=== PATIENT | female | born 1995 | race Asian ===

== ENCOUNTER 2019-05-27 15:07 | Emergency (ER) | payer OTHER ==
--- NOTE | 2019-05-27 16:05 | ED ---
Laceration/Wound HPI - HPI Summary HPI Summary: Patient presents to the ED with a three-quarter inch laceration to the left palm. She states she was attempting to cut an avacado. Tetanus is up-to-date. Denies any significant bleeding. Endorses pain at a 1/10. She cleansed the wound immediately following and came to the ED. No significant medical history. Nonsmoker, no alcohol use. Patient lives with roommate in the dorm. No significant family history. - History of Current Complaint Stated Complaint: FINGER LAC Time Seen by Provider: 05/27/19 15:14 Hx Obtained From: Patient Mechanism of Injury: Sharp/Blunt Trauma Onset/Duration: Sudden Onset Aggravating: Nothing Alleviating: Nothing Timing: Constant Onset Severity: Mild Current Severity: Mild Pain Intensity: 1 Pain Scale Used: 0-10 Numeric Associated Signs & Symptoms: Negative Related Hx: Dominant Hand (Right) - Allergy/Home Medications Allergies/Adverse Reactions: Allergies Allergy/AdvReac Type Severity Reaction Status Date / Time No Known Allergies Allergy Verified 05/27/19 15:12 Home Medications: Home Medications NK [No Home Medications Reported] 05/27/19 [History Confirmed 05/27/19] PMH/Surg Hx/FS Hx/Imm Hx Previously Healthy: Yes - Immunization History Hx Pertussis Vaccination: No Immunizations Up to Date: Yes Infectious Disease History: No Infectious Disease History: Denies: Traveled Outside the [place] in Last 30 Days - Social History Occupation: Unemployed Lives: With Family Alcohol Use: None Hx Substance Use: No Substance Use Type: Reports: None Smoking Status (MU): Never Smoked Tobacco Review of Systems Negative: Fever, Chills, Fatigue, Skin Diaphoresis Negative: Palpitations, Chest Pain Negative: Shortness Of Breath, Cough Negative: Arthralgia, Myalgia Positive: Other - small laceration Neurological: Negative All Other Systems Reviewed And Are Negative: Yes Physical Exam Triage Information Reviewed: Yes Vital Signs On Initial Exam: Initial Vitals Temp Pulse Resp BP Pulse Ox 98.0 F 62 16 119/72 99 05/27/19 15:09 05/27/19 15:09 05/27/19 15:09 05/27/19 15:09 05/27/19 15:09 Vital Signs Reviewed: Yes Appearance: Positive: Well-Appearing, Well-Nourished Skin: Positive: Warm, Skin Color Reflects Adequate Perfusion Musculoskeletal: Positive: Normal, Strength/ROM Intact Neurological: Positive: Sensory/Motor Intact, Alert, Oriented to Person Place, Time, Speech Normal Psychiatric: Positive: Affect/Mood Appropriate AVPU Assessment: Alert Procedures - Sedation Patient Received Moderate/Deep Sedation with Procedure: No Diagnostics - Vital Signs Vital Signs Temp Pulse Resp BP Pulse Ox 05/27/19 15:09 98.0 F 62 16 119/72 99 - Laboratory Lab Statement: Any lab studies that have been ordered have been reviewed, and results considered in the medical decision making process. Laceration Repair Course/Dx - Course Course Of Treatment: Patient was evaluated for a three-quarter inch laceration to the palm of the L hand. Patient was attempting to cut an avacado. No significant bleeding. Laceration is very superficial, not requiring sutures. Cleansed wound. Adhesive applied. No further tx required. Tetanus UTD. - Clinical Impression Provider Diagnoses: Laceration Discharge ED - Sign-Out/Discharge Documenting (check all that apply): Patient Departure - Discharge Plan Condition: Stable Disposition: HOME Patient Education Materials: Skin Adhesive Care (ED) Referrals: [facility] - [facility] WRIGHT [Primary Care Provider] - Additional Instructions: Over the next few days, the glue will slowly flake off Keep the area dry x approximately 24 hours Keep the bandage on for 24 hours, then you will only require a bandaid for the next day - Billing Disposition and Condition Condition: STABLE Disposition: Home - Attestation Statements Provider Attestation: I was available for consult. This patient was seen by the MI. The patient was not presented to, seen by, or examined by me. Maurizio Nogueira MD
[2019-05-27 16:09] VITALS: BP 94/62
== END 2019-05-27 16:08 | disposition home or self-care (01) ==
LOC: ED 15:07
DX: S61.412A Laceration without foreign body of left hand, initial encounter (principal); W45.8XXA Other foreign body or object entering through skin, initial encounter; Y93.G1 Activity, food preparation and clean up; Y92.9 Unspecified place or not applicable
CPT/HCPCS: 99281